=== PATIENT | male | born 1935 | race African-American/Black ===

== ENCOUNTER 2017-01-07 11:30 | Emergency (ER) | payer MEDICAID, MEDICARE ==
[2017-01-07] MEDS ORDERED: Sodium Chloride 0.9% 500 ML ONE (12:51)
[2017-01-07 15:13] LABS: #Lymphocytes 1.3 thou/uL (1.20-3.40); #Monocytes 0.5 thou/uL (0.11-0.59); #Neutrophils 17.1 thou/uL (1.40-6.50); %Basophils 0.2 % (0.0-1.0); %Lymphocytes 6.6 % (21.0-51.0); %Monocytes 2.8 % (0.0-10.0); Anisocytosis MODERATE=16-30 cells (100X) (0-5/hpf); Hematocrit 31.6 % (42.0-52.0); Hypochromia MODERATE=16-30 cells (100X) (0-5/hpf); Mean Platelet Volume 7.6 fL (7.4-10.4); Red Blood Cell (RBC) Count 3.49 mill/uL (4.70-6.10); White Blood Cell (WBC) Count 18.9 thou/uL (4.8-10.8)
[2017-01-07 15:28] LABS: Lactic Acid - Sepsis 1.4 mmol/L (0.5-2.2)
[2017-01-07 15:31] LABS: ALT (SGPT) 28 U/L (0-55); AST (SGOT) 22 U/L (5-34); Alkaline Phosphatase 186 U/L (40-150); Anion Gap 22 mmol/L (10-20); Bilirubin, Total 0.3 mg/dL (0.2-1.2); CK (CPK) 193 U/L (30-200); Calc. Creatinine Clearance 0 mL/min (70-130); Calcium 9.9 mg/dL (7.8-10.44); Carbon Dioxide 14 mmol/L (23-31); Estimated GFR-MDRD 15; Globulin 4.5 g/dL (2.4-3.5); Lipase 16 U/L (8-78); Troponin I 0.011 ng/mL (< 0.028)
[2017-01-07 15:35] LABS: Chloride 129 mmol/L (98-107)
[2017-01-07 15:37] LABS: BUN (Urea Nitrogen) 104 mg/dL (8.4-25.7)
--- NOTE | 2017-01-07 16:02 | CT ---
CT HEAD NONCONTRAST: Indication: Altered mental status for one week. History of prior stroke. FINDINGS: No prior imaging comparison. There is extensive patient motion throughout the exam which degrades image quality and limits assess ment. There is encephalomalacia involving the anterior division right MCA territory. No obvious in tracranial hemorrhage, mass effect, or midline shift. Moderate chronic microvascular ischemic disea se. There are scattered lacunar infarctions in the bilateral basal ganglia. Prominent paranasal si nus opacification including fluid levels present, most notably within the right maxillary sinus and right frontal ethmoidal sinus. IMPRESSION: 1. Limited exam by the degree of patient motion. 2. Chronic ischemic changes are present. No definite acute intracranial hemorrhage or mass effect within limitations. POS: [facility]
--- NOTE | 2017-01-07 16:04 | RAD ---
SINGLE VIEW OF THE CHEST: Indication: Altered mental status. Comparison: None. FINDINGS: There is scattered fibrotic change, most prominent in the right upper lobe. No acute airspace opac ity or pleural effusion is noted. Cardiomediastinal silhouette is within normal limits. No acute o sseous abnormality is apparent. IMPRESSION: No definite acute cardiopulmonary abnormalities. POS: [facility]
[2017-01-07] MEDS ORDERED: Calcium Chloride 1 GM/10 ML Abboject SYRINGE ONE (16:08)
[2017-01-07] MEDS ORDERED: Insulin Regular 300 UNITS/3 ML VIAL ONE (16:08)
[2017-01-07] MEDS ORDERED: Sodium Chloride 0.9% 1,000 ML ONE (16:08)
[2017-01-07] MEDS ORDERED: Dextrose 10% in Water 1,000 ML ONE (16:12)
[2017-01-07] MEDS ORDERED: Dextrose 50% Abboject 50 ML SYRINGE ONE ×2 (16:13→16:27)
[2017-01-07] MEDS ORDERED: Sodium Chloride 0.9% 100 ML ONE (16:42)
--- NOTE | 2017-01-07 16:55 | ERRECORD ---
[facility] EMERGENCY RECORD HPI MENTAL STATUS CHANGES (11:55 [facility]) CHIEF COMPLAINT: Patient presents for evaluation of Per EMS pt was [facility] from [facility] for decreased responsiveness x1 week. Used to make some incoherent noises but now no reaction. Pt now with mouth hanging open all the time. History of demetia and parkinsons. HISTORIAN: Additional history obtained from EMS. LOCATION: Unable to localize symptoms. QUALITY: Patient is, responsive to painful stimuli, [place] coma score, Eye opening: (4) - Spontaneous, Verbal: (1) - Absent, Motor: (4) - Withdraws to Pain, GCS Total: 9. TIME COURSE: Patient unable to describe onset of symptoms. ASSOCIATED WITH: unknown. EXACERBATED BY: Patient's condition exacerbated by unknown. RELIEVED BY: Patient's condition relieved by nothing. RISK FACTORS: CVA/TIA risk factors, Prior CVA / TIA. E/M CAVEAT: Emergency room caveat invoked due to patient with mental status changes. PAST MEDICAL HISTORY MEDICAL HISTORY: Notes: Parkinson's, dementia, frequent UTIs, stroke 2016. (11:56 [facility]) MALE SURGICAL HISTORY: Patient has no surgical history. (11:56 [facility]) PSYCHIATRIC HISTORY: Notes: dementia. (11:56 [facility]) NOTES: Nursing records reviewed, Agree with nursing records. (12:00 [facility]) KNOWN ALLERGIES NKDA CURRENT MEDICATIONS (17:14 [facility]) Unable to Obtain VITAL SIGNS VITAL SIGNS: BP: 144/64, Pulse: 105, Resp: 20, Temp: 98.6 (Oral), Pain: UTR, O2 sat: 100 on Room Air, Time: 01/07/2017 11:42. (11:42 [facility]) BP: 128/63, Pulse: 105, Resp: 19, Pain: UTR, O2 sat: 98 on 2L Oxygen, Time: 01/07/2017 14:50. (14:50 [facility]) BP: 120/70, Pulse: 102, Resp: 20, Pain: UTR, O2 sat: 100 on 2L Oxygen, Time: 01/07/2017 12:01. (12:01 [facility]) BP: 116/46, Pulse: 104, Resp: 18, Pain: UTR, O2 sat: 100 on 2L Oxygen, Time: 01/07/2017 13:02. (13:02 [facility]) BP: 139/93, Pulse: 101, Resp: 21, Temp: 96.9 (Rectal), Pain: UTR, O2 sat: 96 on 2L Oxygen, Time: 01/07/2017 16:00. (16:00 [facility]) BP: 106/55, Pulse: 101, Resp: 18, Pain: UTR, O2 sat: 95 on 2L Oxygen, Time: 01/07/2017 16:39. (16:39 [facility]) &a-1R&a+25V*p+0X*[id number]*c202B*c15G*c2P*p-0X&a-25V&a+1R Name: Carson Benitez : 09/14/1936 M80 MedRec: [id number] AcctNum: [id number] Prepared: SatJan 07, 2017 18:18 by Interface Page 1 of 3 pMD [facility] EMERGENCY RECORD PHYSICAL EXAM (11:58 [facility]) CONSTITUTIONAL: Vital Signs Reviewed, Pt laying in bed, slowly attempting to curl up. Pt resists efforts to straighten him out. Withdraws to pain only. No verbal responses. Mouth hangs open with tongue protruding. No apparent resp distress. HEAD: Head exam included findings of head atraumatic, normocephalic. EYES: Eye exam included findings of eyelids normal to inspection, Pupils not equally round and reactive to light, Left pupil pinpoint, Right pupil pinpoint. ENT: Mouth exam included findings of, mucous membranes dry, tongue protruding. NECK: Trachea midline, no jugular venous distention. RESPIRATORY CHEST: Respiratory exam included findings of no respiratory distress, Breath sounds clear, No wheezing, No rales, No rhonchi. CARDIOVASCULAR: Cardiovascular exam included findings of, rate tachycardic, Heart sounds normal. ABDOMEN MALE: Abdominal exam included findings of abdomen nontender, Bowel sounds normal, no distension. BACK: Back exam included findings of normal inspection. UPPER EXTREMITY: Upper extremity exam included findings of inspection normal, Radial pulse normal, no cyanosis, no clubbing, no edema. LOWER EXTREMITY: Lower extremity exam included findings of inspection normal, no edema. NEURO: Neuro exam findings include patient oriented to, Speech, absent. SKIN: I have completed a skin comprehensive exam and found exam normal, Skin warm, dry, and normal in color. MEDICATION ADMINISTRATION SUMMARY Drug Name: dextrose 10 % in water (D10W), Dose Ordered: 50 mL/hr, Route: IV Fluid Infusion, Status: Given, Time: 16:57 01/07/2017, Drug Name: NovoLIN R, Dose Ordered: 10 units, Route: IV Push, Status: Given, Time: 16:57 01/07/2017, Drug Name: *dextrose 50 % in water (D50W), Dose Ordered: 1 amp(s), Route: IV Push, Status: Given, Time: 16:56 01/07/2017, Drug Name: calcium chloride intravenous, Dose Ordered: 1000 mg, Route: IV Push, Status: Given, Time: 16:55 01/07/2017, Drug Name: *sodium chloride 0.9 % intravenous, Dose Ordered: 1 L, Route: IV Fluid Infusion, Status: Given, Time: 16:55 01/07/2017, Drug Name: *sodium chloride 0.9 % intravenous, Dose Ordered: 500 mL, Route: IV Fluid Infusion, Status: Given, Time: 12:57 01/07/2017, *Additional information available in notes, Detailed record available in Medication Service section. DOCTOR NOTES TEXT: Dr. Cooper accepted the transfer to [facility] ER. &a-1R&a+25V*p+0X*[id number]*c202B*c15G*c2P*p-0X&a-25V&a+1R Name: Carson Benitez : 09/14/1936 M80 MedRec: [id number] AcctNum: [id number] Prepared: SatJan 07, 2017 18:18 by Interface Page 2 of 3 pMD [facility] EMERGENCY RECORD (16:14 [facility]) Nurses attempted to place garces without success. Exam of penis reveals an unfused ventral penile shaft the tracks back beneath the foreskin for an unknown length. Physician attempted to threat the garces but met resistance just past the base and garces attempt stopped. (16:15 [facility]) PROBLEM LIST No recorded problems DIAGNOSIS (16:46 [facility]) FINAL: PRIMARY: Hyperkalemia, ADDITIONAL: ACUTE RENAL FAILURE TUBULR NECROSIS, DEHYDRATION. PRESCRIPTION No recorded prescriptions DISPOSITION PATIENT: Disposition Type: Transfer, Disposition: Transfer to [facility]. (16:46 [facility]) Patient left the department. (18:11 [facility]) Hernández: JLOY=MD Jaspreet, Ze [facility]=ADELITA Carcamo, Kandace &a-1R&a+25V*p+0X*[id number]*c202B*c15G*c2P*p-0X&a-25V&a+1R Name: Carson Benitez : 09/14/1936 M80 MedRec: [id number] AcctNum: [id number] Prepared: Lisbeth Jan 07, 2017 18:18 by Interface Page 3 of 3 pMD [facility]D
--- NOTE | 2017-01-07 16:56 | PICIS ---
[facility] EMERGENCY RECORD TRIAGE (SatJan 07, 2017 11:55 [facility]) TRIAGE NOTES: EMS reporting pt has been altered for a week per family. Pt has hx of strokes but is "more altered than usual.". (SatJan 07, 2017 11:55 [facility]) PATIENT: NAME: Carson Benitez, AGE: 80, GENDER: male, : Sun Sep 14, 1936, TIME OF GREET: SatJan 07, 2017 11:31, PREFERRED LANGUAGE: Micronesian, ETHNICITY: Not or , ECODE BILLING MAP: [facility] ER, SSN: [id number], Zip Code: [address], KG WEIGHT: 61.23 (est.), PHONE: , , , PERSON ID: [id number]. (SatJan 07, 2017 11:55 [facility]) COMPLAINT: AMS. (SatJan 07, 2017 11:55 [facility]) ADMISSION: URGENCY: 2 Emergent, ADMISSION SOURCE: Detention, TRANSPORT: AMBULANCE - [facility], BED: ER -04. (SatJan 07, 2017 11:55 [facility]) IMMUNIZATIONS: Flu vaccine up to date, Tetanus immunization up to date, Pneumococcal vaccine not up to date. (11:56 [facility]) SIRS SCORING: Heart Rate 55-109 (0), Temp range 96.8-101.1 (0), respiratory rate 12-24 (0), Mental Status altered: no (0). (11:56 [facility]) TRIAGE SCREENING: Patient denies suicidal ideation, Patient denies presence of domestic violence. (11:56 [facility]) PROVIDERS: TRIAGE NURSE: Kandace Carcamo RN. (SatJan 07, 2017 11:55 [facility]) VITAL SIGNS: BP 144/64, Pulse 105, Resp 20, Temp 98.6, (Oral), Pain UTR, O2 Sat 100, on Room Air, Time 01/07/2017 11:42. (11:42 [facility]) KNOWN ALLERGIES NKDA CURRENT MEDICATIONS (17:14 [facility]) Unable to Obtain VITAL SIGNS VITAL SIGNS: BP: 144/64, Pulse: 105, Resp: 20, Temp: 98.6 (Oral), Pain: UTR, O2 sat: 100 on Room Air, Time: 01/07/2017 11:42. (11:42 [facility]) BP: 128/63, Pulse: 105, Resp: 19, Pain: UTR, O2 sat: 98 on 2L Oxygen, Time: 01/07/2017 14:50. (14:50 [facility]) BP: 120/70, Pulse: 102, Resp: 20, Pain: UTR, O2 sat: 100 on 2L Oxygen, Time: 01/07/2017 12:01. (12:01 [facility]) BP: 116/46, Pulse: 104, Resp: 18, Pain: UTR, O2 sat: 100 on 2L Oxygen, Time: 01/07/2017 13:02. (13:02 [facility]) BP: 139/93, Pulse: 101, Resp: 21, Temp: 96.9 (Rectal), Pain: UTR, O2 sat: 96 on 2L Oxygen, Time: 01/07/2017 16:00. (16:00 [facility]) BP: 106/55, Pulse: 101, Resp: 18, Pain: UTR, O2 sat: 95 on 2L Oxygen, Time: 01/07/2017 16:39. (16:39 [facility]) NURSING ASSESSMENT: FALL RISK (16:03 [facility]) FALL RISK: Fall risk assessment findings include: History of &a-1R&a+25V*p+0X*n3036M*c202B*c15G*c2P*p-0X&a-25V&a+1R Name: Carson Benitez : 09/14/1936 M80 MedRec: [id number] AcctNum: [id number] Prepared: SatJan 07, 2017 18:18 by Interface Page [address] [facility] EMERGENCY RECORD falls (5), Bed rest greater than 2 days (5), Sensory deficits (1), Impaired mobility (3), Neurologic diagnosis (3), Elimination problems (3), Confusion (3), Total score 23. NURSING ASSESSMENT: NEURO (12:01 [facility]) GCS: (4) Withdraws to pain:, (2) Incomprehensible speech:, (2) Opening to response to pain:, Result: 8. CONSTITUTIONAL: Complex assessment performed, Patient arrives, via [facility], Unsteady gait, Inability to ambulate, History obtained from, family member: Amadeo Urias (niece), Patient appears, confused, Patient, uncooperative, unresponsive, Patient, responsive to painful stimuli, Patient is, disoriented, Skin abnormal, Skin temperature is cold, Skin dry, Skin normal in color, Niece reporting pt has been altered for some period of time, but was @ his baseline on Saturday when she visited him. Is now A&Ox0, responsive only to painful stimuli, and attempting to chew on his hands and leads. Brief from skilled nursing noted to be saturated with blood. PAIN: UTR. NEURO: Pupils equally round and reactive to light, Able to close eyes, Face asymmetrical, right greater than left, Speech, not verbally responsive. SAFETY: Side rails up, Cart/Stretcher in lowest position, Family at bedside, Call light within reach, Hospital ID band on. VITAL SIGNS: BP: 120, / 70, Pulse: 102, Resp: 20, Pain: UTR, O2 sat: 100, on: RA. NURSING ASSESSMENT: SKIN (16:03 [facility]) SKIN: Skin assessment findings include skin warm, Skin dry, Skin normal in color, Inspection findings include: No pressure ulcer to the shoulder, Inspection findings include no pressure ulcer to the elbow, Inspection findings include no pressure ulcers to the hip, Inspection findings include pressure ulcer to the sacrum, Stage I, length (cm) 3, width (cm) 3, draining serosanguinous fluid, Pt has what appears to be a small fissure or hemorrhoids around rectum; anal opening noted to be diameter of a nickel., Inspection findings include no pressure ulcer to the heel, Inspection findings include no pressure ulcer, Inspection findings include no pressure ulcer, Notes: Pt's skin is CDI with no deformities or lesions noted to posterior surface, other than as listed around perineal area. Central line placed in R femoral vein. JOSE ANGEL SCALE: (2) Sensory perception very limited, (2) Skin is very moist, (1) Patient is bedfast, (1) Completely immobile, (1) Very poor nutrition, (1) Patient has problem moving, Jose Angel Risk Total: 8. SAFETY: Side rails up, Cart/Stretcher in lowest position, Call &a-1R&a+25V*p+0X*o6219M*c202B*c15G*c2P*p-0X&a-25V&a+1R Name: Carson Benitez : 09/14/1936 M80 MedRec: [id number] AcctNum: [id number] Prepared: SatJan 07, 2017 18:18 by Interface Page [address] [facility] EMERGENCY RECORD light within reach, Hospital ID band on. NURSING PROCEDURE: BEDSIDE SIRS TESTING (15:35 [facility]) SCORES: Heart Rate 55-109 (0), Temp range 96.8-101.1 (0), respiratory rate 12-24 (0), Latest WBC 15-19.9 (1), Mental status altered: yes (1), Total SIRS Score 2, Yes, Infection or Suspected Infection. NURSING PROCEDURE: BEDSIDE TESTING (17:41 [facility]) GLUCOSE: Glucose testing indicated for mental status changes, Venous blood sample, Result (mg/dl) 128. NURSING PROCEDURE: CAMPAIGN COORDINATOR (14:15 [facility]) CAMPAIGN COORDINATOR: Patient placed on personnel monitor, Patient placed on non-invasive blood pressure monitor, Patient placed on continuous pulse oximetry. FOLLOW-UP: After procedure, alarms set and on, After procedure, patient tolerating monitoring. SAFETY: Side rails up, Cart/Stretcher in lowest position, Call light within reach, Hospital ID band on. NURSING PROCEDURE: CENTRAL LINE (14:50 [facility]) TIMEOUT: Prior to procedure, correct patient verified by, Correct procedure verified, Correct site verified, Correct equipment utilized. CENTRAL LINE SITE 1: Central line indicated for inability to establish peripheral IV, Central line indicated for penitentiary need for fluids or antibiotics, Central line insertion for patient greater than or 5 years of age. FOLLOW-UP SITE 1: After procedure, sterile dressing applied, After procedure, tubing connections checked and properly labeled, After procedure, central line flushes easily and patent, After procedure, no drainage at site, After procedure, no swelling at site. SAFETY: Side rails up, Cart/Stretcher in lowest position, Call light within reach, Hospital ID band on. NURSING PROCEDURE: EKG CHART (12:22 [facility]) FOLLOW-UP: After procedure, EKG for interpretation given to Dr. Mitchell. SAFETY: Side rails up, Cart/Stretcher in lowest position, Call light within reach, Hospital ID band on. NURSING PROCEDURE: IV IV SITE 1: IV established, to the right hand, using a 22 gauge catheter, in two attempts, IV site prepped with chloraprep, Saline lock established, Flushed with normal saline (mls): 10, Notes: KRUNAL established by ADELITA Acosta with use of IV catheter and start kit. SL established with no swelling, drainage, or redness. Secured with clear Tegaderm. (12:52 [facility]) FOLLOW-UP SITE 1: After procedure, no drainage at IV site, After &a-1R&a+25V*p+0X*e3474O*c202B*c15G*c2P*p-0X&a-25V&a+1R Name: Carson Benitez : 09/14/1936 M80 MedRec: [id number] AcctNum: [id number] Prepared: SatJan 07, 2017 18:18 by Interface Page [address] [facility] EMERGENCY RECORD procedure, no swelling at IV site, After procedure, no redness at IV site, IV discontinued, by patient, catheter intact. (14:52 [facility]) NURSING PROCEDURE: NURSE NOTES (11:56 [facility]) NURSES NOTES: Notes: Brief from skilled nursing noted to be full of blood. EMS did not call prior to delivery of pt- stated they "did not have the facility's phone number." Pt disoriented and nonverbal, squirming slowly and niece @ BS says he was "appropriate and like normal on Saturday." SEGREGATOR from [facility] called for report after pt's arrival. NURSING PROCEDURE: OXYGEN THERAPY (11:55 [facility]) OXYGEN THERAPY: Oxygen therapy indicated for desaturation. SAFETY: Side rails up, Cart/Stretcher in lowest position, Call light within reach, Hospital ID band on. NURSING PROCEDURE: TRANSFER (18:06 [facility]) TRANSFER: Reason for transfer need for specialized care, Diagnosis: Hyperkalemia, acute renal failure, tubular necrosis, dehydration, Accepting institution: [place] [facility], Accepting physician: Pricilla, Referring physician: Jaspreet, Transported by non-urgent ambulance, accompanied by emergency medical services personnel, Report called to receiving facility, Summary of Care printed, Copy of patient record prepared for receiving facility, Family member contacted. BELONGINGS: Belongings and valuables with patient upon arrival to the Emergency Department include:, Belongings and valuables with patient at time of discharge include:. SAFETY: Side rails up, Cart/Stretcher in lowest position, Family at bedside, Call light within reach, Hospital ID band on. NURSING PROCEDURE: TRANSPORT TO TESTS TRANSPORT TO TESTS: Transport indicated to facilitate diagnosis, Patient transported to x-ray, via cart, Accompanied by x-ray radiochemical technician, Transported with advanced life support care. (12:09 [facility]) Patient transported to CT scan, via cart, Patient arrived in location at 1215, Patient departed location at 1220, Notes: pt taken to CT, but pt became agitated. Unable to perform CT at this time. Pt returned to ER and nurses informed. (12:15 [facility]) FOLLOW-UP: After procedure, patient returned to emergency department. (12:15 [facility]) SAFETY: Side rails up, Cart/Stretcher in lowest position, Family at bedside, Call light within reach, Hospital ID band on. (12:09 [facility]) ORDER DETAILS Order Name: Cardiac Profile w/CKMB & Troponin - I, Status: Active, Time: 12:01 01/07/2017, User: ERIK, &a-1R&a+25V*p+0X*k9410Y*c202B*c15G*c2P*p-0X&a-25V&a+1R Name: Carson Benitez : 09/14/1936 M80 MedRec: [id number] AcctNum: [id number] Prepared: SatJan 07, 2017 18:18 by Interface Page [address] [facility] EMERGENCY RECORD - Ordered for: MD Mitchell Joshua, - Entered by: MD Mitchell Joshua - [facility] Jan 07, 2017 12:01, - Quantity: 1, Order Name: CATH STRAIGHT ED, Status: Canceled, Time: 15:26 01/07/2017, User: [facility], - Ordered for: MD Mitchell Joshua, - Entered by: MD Mitchell Joshua - [facility] Jan 07, 2017 12:01, - Reason for Cancel: unable to obtain, - Quantity: 1, Order Name: CBC with Differential, Status: Active, Time: 12:01 01/07/2017, User: ERIK, - Ordered for: MD Mitchell Joshua, - Entered by: MD Mitchell Joshua - [facility] Jan 07, 2017 12:01, - Quantity: 1, Order Name: chart element #1, Status: Active, Time: 14:50 01/07/2017, User: System, - Ordered for: MD Mitchell Joshua, - Entered by: ADELITA Carcamo, [facility] Jan 07, 2017 14:50, - Quantity: 1, Order Name: chart element #4, Status: Active, Time: 14:50 01/07/2017, User: System, - Ordered for: MD Mitchell Joshua, - Entered by: ADELITA Carcamo, [facility] Jan 07, 2017 14:50, - Quantity: 1, Order Name: CK (CPK), Status: Active, Time: 12:01 01/07/2017, User: ERIK, - Ordered for: MD Mitchell Joshua, - Entered by: MD Mitchell Joshua - [facility] Jan 07, 2017 12:01, - Quantity: 1, Order Name: Comprehensive Metabolic Panel, Status: Active, Time: 12:01 01/07/2017, User: ERIK, - Ordered for: MD Mitchell Joshua, - Entered by: MD Mitchell Joshua - [facility] Jan 07, 2017 12:01, - Quantity: 1, Order Name: CT Brain WO Con, Status: Active, Time: 12:01 01/07/2017, User: ERIK, - Ordered for: MD Mitchell Joshua, - Entered by: MD Mitchell Joshua - [facility] Jan 07, 2017 12:01, - Quantity: 1, Order Name: Culture, Blood, Status: Active, Time: 14:53 01/07/2017, User: ERIK, - Ordered for: MD Mitchell Joshua, - Entered by: MD Mitchell Joshua - Mon Jan 07, 2017 14:53, - Quantity: 1, Order Name: EKG 12 Lead in Emergency Room, Status: Active, Time: 12:01 01/07/2017, User: ERIK, - Ordered for: MD Mitchell Joshua, - Entered by: MD Mitchell Joshua - [facility] Jan 07, 2017 12:01, - Quantity: 1, Order Name: ERRT Oxygen Usage ER, Status: Active, Time: 14:51 &a-1R&a+25V*p+0X*r5739U*c202B*c15G*c2P*p-0X&a-25V&a+1R Name: Carson Benitez : 09/14/1936 M80 MedRec: [id number] AcctNum: [id number] Prepared: SatJan 07, 2017 18:18 by Interface Page [address] [facility] EMERGENCY RECORD 01/07/2017, User: CURTIS, - Ordered for: MD Mitchell Joshua, - Entered by: ADELITA Carcamo, Kandace - [facility] Jan 07, 2017 14:51, - Quantity: 1, Order Name: Lactic Acid with repeat, Status: Active, Time: 14:53 01/07/2017, User: ERIK, - Ordered for: MD Mitchell Joshua, - Entered by: MD Mitchell Joshua - [facility] Jan 07, 2017 14:53, - Quantity: 1, Order Name: Lipase, Status: Active, Time: 12:01 01/07/2017, User: ERIK, - Ordered for: MD Mitchell Joshua, - Entered by: MD Mitchell Joshua - [facility] Jan 07, 2017 12:01, - Quantity: 1, Order Name: SALINE LOCK, Status: Done, Time: 12:52 01/07/2017, User: CURTIS, - Ordered for: MD Mitchell Joshua, - Entered by: MD Mitchell Joshua - [facility] Jan 07, 2017 12:01, - Quantity: 1, Order Name: Urinalysis w/ Rflx Microscopic, Status: Canceled, Time: 15:27 01/07/2017, User: CURTIS, - Ordered for: MD Mitchell Joshua, - Entered by: MD Mitchell Joshua - [facility] Jan 07, 2017 12:01, - Quantity: 1, Order Name: XR Chest 1 View Portable, Status: Active, Time: 12:01 01/07/2017, User: ERIK, - Ordered for: MD Mitchell Joshua, - Entered by: MD Mitchell Joshua - SatJan 07, 2017 12:01, - Quantity: 1. MEDICATION ADMINISTRATION SUMMARY Drug Name: dextrose 10 % in water (D10W), Dose Ordered: 50 mL/hr, Route: IV Fluid Infusion, Status: Given, Time: 16:57 01/07/2017, Drug Name: NovoLIN R, Dose Ordered: 10 units, Route: IV Push, Status: Given, Time: 16:57 01/07/2017, Drug Name: *dextrose 50 % in water (D50W), Dose Ordered: 1 amp(s), Route: IV Push, Status: Given, Time: 16:56 01/07/2017, Drug Name: calcium chloride intravenous, Dose Ordered: 1000 mg, Route: IV Push, Status: Given, Time: 16:55 01/07/2017, Drug Name: *sodium chloride 0.9 % intravenous, Dose Ordered: 1 L, Route: IV Fluid Infusion, Status: Given, Time: 16:55 01/07/2017, Drug Name: *sodium chloride 0.9 % intravenous, Dose Ordered: 500 mL, Route: IV Fluid Infusion, Status: Given, Time: 12:57 01/07/2017, *Additional information available in notes, Detailed record available in Medication Service section. MEDICATION SERVICE calcium chloride intravenous: Order: calcium chloride intravenous (calcium chloride) - Dose: 1000 mg : IV Push Ordered by: Ze Mitchell MD &a-1R&a+25V*p+0X*h7102A*c202B*c15G*c2P*p-0X&a-25V&a+1R Name: Carson Benitez : 09/14/1936 M80 MedRec: [id number] AcctNum: [id number] Prepared: SatJan 07, 2017 18:18 by Interface Page [address] [facility] EMERGENCY RECORD Entered by: Ze Mitchell MD SatJan 07, 2017 15:49 , Acknowledged by: Kandace Carcamo RN SatJan 07, 2017 16:02 Documented as given by: Kandace Carcamo RN SatJan 07, 2017 16:55 Patient, Medication, Dose, Route and Time verified prior to administration. Amount given: 1g, Added to 100 ml NS fluid infusion per ERMD. : Follow Up : Response assessment performed, No signs or symptoms of allergic reaction noted, Site inspection shows, No swelling at administration site, No drainage at administration site, No bleeding at site, No bruising noted at site, _IV SITE #1:_, Medication infusion discontinued, on SatJan 07, 2017 17:46, 55 minutes, ., Total amount infused: 1g. (17:46 [facility]) dextrose 10 % in water (D10W): Order: dextrose 10 % in water (D10W) (dextrose 10 % in water) - Dose: 50 mL/hr : IV Fluid Infusion Ordered by: Ze Mitchell MD Entered by: Ze Mithcell MD SatJan 07, 2017 16:19 , Acknowledged by: Kandace Carcamo RN SatJan 07, 2017 16:26 Documented as given by: Kandace Carcamo RN SatJan 07, 2017 16:57 Patient, Medication, Dose, Route and Time verified prior to administration. Amount given: 50 mL/hr. : Follow Up : Response assessment performed, No signs or symptoms of allergic reaction noted, Site inspection shows, No swelling at administration site, No drainage at administration site, No bleeding at site, No bruising noted at site, _IV SITE #1:_, IV fluid infusion continued upon transfer from emergency department, on SatJan 07, 2017 17:46, 50 minutes, ., Total amount infused: 44 ml. (17:46 [facility]) dextrose 50 % in water (D50W): Order: dextrose 50 % in water (D50W) (dextrose 50 % in water) - Dose: 1 amp(s) : IV Push Notes: Give prior to insulin Ordered by: Ze Mitchell MD Entered by: Ze Mitchell MD SatJan 07, 2017 16:19 , Acknowledged by: Kandace Carcamo RN SatJan 07, 2017 16:26 Documented as given by: Kandace Carcamo RN SatJan 07, 2017 16:56 Patient, Medication, Dose, Route and Time verified prior to administration. Amount given: 1 amp, IV SITE #1 IVP, subsequent different medication, Administered by ADELITA Jeronimo, Patient in position of comfort, Side rails up, Cart in lowest position, Call light in reach. NovoLIN R: Order: NovoLIN R (insulin regular, human) - Dose: 10 units : IV Push Ordered by: Ze Mitchell MD Entered by: Ze Mitchell MD SatJan 07, 2017 16:19 , Acknowledged by: Kandace Carcamo RN SatJan 07, 2017 16:26 Documented as given by: Kandace Carcamo RN SatJan 07, 2017 16:57 Patient, Medication, Dose, Route and Time verified prior to administration. Amount given: 10 units, IV SITE #1 IVP, Administered by ADELITA Jeronimo, &a-1R&a+25V*p+0X*b5566D*c202B*c15G*c2P*p-0X&a-25V&a+1R Name: Carson Benitez : 09/14/1936 M80 MedRec: [id number] AcctNum: [id number] Prepared: SatJan 07, 2017 18:18 by Interface Page [address] [facility] EMERGENCY RECORD Patient in position of comfort, Side rails up, Cart in lowest position, Call light in reach. sodium chloride 0.9 % intravenous: Order: sodium chloride 0.9 % intravenous (0.9 % sodium chloride) - Dose: 500 mL : IV Fluid Infusion Notes: (Bolus) Ordered by: Ze Mitchell MD Entered by: Ze Mitchell MD SatJan 07, 2017 12:01 , Acknowledged by: Kandace Carcamo RN SatJan 07, 2017 12:04 Documented as given by: Kandace Carcamo RN SatJan 07, 2017 12:57 Patient, Medication, Dose, Route and Time verified prior to administration. Amount given: 500 ml, IV SITE #1 IV fluids established for hydration, IV SITE #1 into right hand, IV SITE #1 1st bag hung, amount 500ml hung, IV SITE #1 Rate of infusion (non-bolus) Infusing at 500 ml/hr, via primary tubing, IV SITE #1 on IV pump, Administered by ADELITA Jeronimo, Patient in position of comfort, Side rails up, Cart in lowest position, Call light in reach. : Follow Up : _IV SITE #1:_, IV fluid infusion discontinued, on SatJan 07, 2017 15:34, Total fluid hydration time IV site 1 2 hours, 40 minutes, ., fluid stopped ~ 20 minutes after administration due to blown IV. Restarted 500 mL NS bolus in central line @ 1535. (15:34 [facility]) sodium chloride 0.9 % intravenous: Order: sodium chloride 0.9 % intravenous (0.9 % sodium chloride) - Dose: 1 L : IV Fluid Infusion Notes: (Bolus) Ordered by: Ze Mitchell MD Entered by: Ze Mitchell MD SatJan 07, 2017 15:39 , Acknowledged by: Kandace Carcamo RN SatJan 07, 2017 16:02 Documented as given by: Kandace Carcamo RN SatJan 07, 2017 16:55 Patient, Medication, Dose, Route and Time verified prior to administration. Amount given: 1L. : Follow Up : Response assessment performed, No signs or symptoms of allergic reaction noted, Site inspection shows, No swelling at administration site, No drainage at administration site, No bleeding at site, No bruising noted at site, _IV SITE #1:_, IV fluid infusion discontinued, on SatJan 07, 2017 17:46, 55 minutes, ., Total amount infused: 1L. (17:46 [facility]) HPI MENTAL STATUS CHANGES (11:55 [facility]) CHIEF COMPLAINT: Patient presents for evaluation of Per EMS pt was sent from the skilled nursing for decreased responsiveness x1 week. Used to make some incoherent noises but now no reaction. Pt now with mouth hanging open all the time. History of demetia and parkinsons. HISTORIAN: Additional history obtained from EMS. LOCATION: Unable to localize symptoms. QUALITY: Patient is, responsive to painful stimuli, Parlin coma &a-1R&a+25V*p+0X*s3645P*c202B*c15G*c2P*p-0X&a-25V&a+1R Name: Carson Benitez : 09/14/1936 M80 MedRec: [id number] AcctNum: [id number] Prepared: SatJan 07, 2017 18:18 by Interface Page [address] [facility] EMERGENCY RECORD score, Eye opening: (4) - Spontaneous, Verbal: (1) - Absent, Motor: (4) - Withdraws to Pain, GCS Total: 9. TIME COURSE: Patient unable to describe onset of symptoms. ASSOCIATED WITH: unknown. EXACERBATED BY: Patient's condition exacerbated by unknown. RELIEVED BY: Patient's condition relieved by nothing. RISK FACTORS: CVA/TIA risk factors, Prior CVA / TIA. E/M CAVEAT: Emergency room caveat invoked due to patient with mental status changes. PAST MEDICAL HISTORY MEDICAL HISTORY: Notes: Parkinson's, dementia, frequent UTIs, stroke 2016. (11:56 [facility]) MALE SURGICAL HISTORY: Patient has no surgical history. (11:56 [facility]) PSYCHIATRIC HISTORY: Notes: dementia. (11:56 [facility]) NOTES: Nursing records reviewed, Agree with nursing records. (12:00 [facility]) PHYSICAL EXAM (11:58 [facility]) CONSTITUTIONAL: Vital Signs Reviewed, Pt laying in bed, slowly attempting to curl up. Pt resists efforts to straighten him out. Withdraws to pain only. No verbal responses. Mouth hangs open with tongue protruding. No apparent resp distress. HEAD: Head exam included findings of head atraumatic, normocephalic. EYES: Eye exam included findings of eyelids normal to inspection, Pupils not equally round and reactive to light, Left pupil pinpoint, Right pupil pinpoint. ENT: Mouth exam included findings of, mucous membranes dry, tongue protruding. NECK: Trachea midline, no jugular venous distention. RESPIRATORY CHEST: Respiratory exam included findings of no respiratory distress, Breath sounds clear, No wheezing, No rales, No rhonchi. CARDIOVASCULAR: Cardiovascular exam included findings of, rate tachycardic, Heart sounds normal. ABDOMEN MALE: Abdominal exam included findings of abdomen nontender, Bowel sounds normal, no distension. BACK: Back exam included findings of normal inspection. UPPER EXTREMITY: Upper extremity exam included findings of inspection normal, Radial pulse normal, no cyanosis, no clubbing, no edema. LOWER EXTREMITY: Lower extremity exam included findings of inspection normal, no edema. NEURO: Neuro exam findings include patient oriented to, Speech, absent. SKIN: I have completed a skin comprehensive exam and found exam normal, Skin warm, dry, and normal in color. &a-1R&a+25V*p+0X*[id number]*c202B*c15G*c2P*p-0X&a-25V&a+1R Name: Carson Benitez : 09/14/1936 M80 MedRec: [id number] AcctNum: [id number] Prepared: SatJan 07, 2017 18:18 by Interface Page [address] [facility] EMERGENCY RECORD EVENTS TRANSFER: Triage to Emergency Emergency Room -04. (SatJan 07, 2017 11:55 [facility]) Removed from Emergency Emergency Room -04. (18:11 [facility]) DOCTOR NOTES TEXT: Dr. Cooper accepted the transfer to [facility] ER. (16:14 JLOY) Nurses attempted to place garces without success. Exam of penis reveals an unfused ventral penile shaft the tracks back beneath the foreskin for an unknown length. Physician attempted to threat the garces but met resistance just past the base and garces attempt stopped. (16:15 JLOY) CENTRAL LINE (14:52 JLOY) TIMEOUT: Side and/or site verified, Patient identification confirmed, Sterile procedures observed. CENTRAL LINE: Verbal consent obtained, Central line indicated for inability to establish peripheral IV, There are no contraindications, Central line insertion for patient greater than or 5 years of age, Percutaneous, Central line inserted in right femoral, using a triple lumen catheter, Anesthesia used lidocaine 1% without epinephrine, 3 mLs, Seldinger technique used, After procedure, line secured, with sutures, After procedure, sterile dressing applied, After procedure, no bleeding from site, After procedure, no redness at site, After procedure, no swelling at site, After procedure, no ecchymosis at site, Chest x-ray not applicable, There were no complications, Patient tolerated the procedure well. PROBLEM LIST No recorded problems DIAGNOSIS (16:46 JLOY) FINAL: PRIMARY: Hyperkalemia, ADDITIONAL: ACUTE RENAL FAILURE TUBULR NECROSIS, DEHYDRATION. DISPOSITION PATIENT: Disposition Type: Transfer, Disposition: Transfer to [facility]. (16:46 JLOY) Patient left the department. (18:11 [facility]) PRESCRIPTION No recorded prescriptions IMAGING *MEMORANDUM OF TRANSFER: Image captured from scanner. (16:54 REZE) CONSENTS: Image captured from scanner. (16:54 REZE) *EKG: Image captured from scanner. (16:55 REZE) &a-1R&a+25V*p+0X*o0673X*c202B*c15G*c2P*p-0X&a-25V&a+1R Name: Carson Benitez : 09/14/1936 M80 MedRec: [id number] AcctNum: [id number] Prepared: SatJan 07, 2017 18:18 by Interface Page [address] [facility] EMERGENCY [facility] NOTES: Image captured from scanner. (17:37 REZE) Image captured from scanner. (17:37 REZE) Image captured from scanner. (17:37 REZE) Image captured from scanner. (17:38 REZE) Image captured from scanner. (17:38 REZE) Image captured from scanner. (17:38 REZE) Image captured from scanner. (17:38 REZE) Image captured from scanner. (17:38 REZE) Image captured from scanner. (17:39 REZE) Image captured from scanner. (17:39 REZE) Image captured from scanner. (17:39 REZE) Image captured from scanner. (17:39 REZE) *SUPPLY CHARGE SHEET: Image captured from scanner. (18:07 REZE) ADMIN (16:47 [facility]) DIGITAL SIGNATURE: MD Jaspreet, Ze. RESULTS (15:54 [facility]) LABORATORY: Lipase Collection DT: SatJan 07, 2017 14:58, Lipase 16 U/L, Range (8-78). CK (CPK) Collection DT: SatJan 07, 2017 14:58, CK (CPK) 193 U/L, Range (30-200). Comprehensive Metabolic Panel Collection DT: SatJan 07, 2017 14:58, Critical Call Chemistry CALLED W/READ BACK , Refer to Critical Value designated by an *L or *H , *Sodium 158 - H mmol/L, Range (136-145), *Potassium 7.0 - *H mmol/L, Range (3.5-5.1), NOTIFIED DR MITCHELL, [id number], *Chloride 129 - *H mmol/L, Range (98-107), [id number], *Carbon Dioxide 14 - L mmol/L, Range (23-31), *Anion Gap 22 - H mmol/L, Range (10-20), *BUN (Urea Nitrogen) 104 - H mg/dL, Range (8.4-25.7), *Creatinine 4.68 - H mg/dL, Range (0.7-1.3), Estimated GFR-MDRD 15 , Reference Range for Estimated GFR: Greater than 90, mL/min/1.73 m2 NOTE: The MDRD equation has not been validated for use, with the elderly (over 70 years of age), women, patients with, serious comorbid condition or persons with extremes of body size, muscle, mass, or nutritional status. , Glucose 107 mg/dL, Range (83-110), Calcium 9.9 mg/dL, Range (7.8-10.44), Bilirubin, Total 0.3 mg/dL, Range (0.2-1.2), Protein, Total 8.0 g/dL, Range (5.8-8.1), NOTE: Plasma values are generally 0.3 to 0.5 g/dL higher than serum values, due to the presence of fibrinogen. , Albumin 3.5 g/dL, Range (3.4-4.8), *Globulin 4.5 - H g/dL, Range (2.4-3.5), *Alb/Glob Ratio 0.8 - L g/dL, Range (1.2-2.2), &a-1R&a+25V*p+0X*q2084Q*c202B*c15G*c2P*p-0X&a-25V&a+1R Name: Carson Benitez : 09/14/1936 M80 MedRec: [id number] AcctNum: [id number] Prepared: SatJan 07, 2017 18:18 by Interface Page [address] [facility] EMERGENCY RECORD *Alkaline Phosphatase 186 - H U/L, Range (40-150), AST (SGOT) 22 U/L, Range (5-34), ALT (SGPT) 28 U/L, Range (0-55). Cardiac Profile w/CKMB & TropI Collection DT: SatJan 07, 2017 14:58, CKMB 5.5 ng/mL, Range (0-6.6), Troponin I 0.011 ng/mL, Range (< 0.028), Reference Range , 0.00 - 0.028 ng/mL Negative 0.029 - 0.29 ng/mL , Indeterminate Greater or Equal to 0.3 ng/mL Strongly suggests [place] , . Lactic Acid for Sepsis Collection DT: SatJan 07, 2017 14:58, Lactic Acid - Sepsis 1.4 mmol/L, Range (0.5-2.2). CBC with Differential Collection DT: SatJan 07, 2017 14:58, *White Blood Cell (WBC) Count 18.9 - H thou/uL, Range (4.8-10.8), *Red Blood Cell (RBC) Count 3.49 - L mill/uL, Range (4.70-6.10), *Hemoglobin 9.1 - L g/dL, Range (14.0-18.0), *Hematocrit 31.6 - L %, Range (42.0-52.0), Mean Corpuscular Volume 90.5 fl, Range (80.0-94.0), *Mean Corpuscular Hemoglobin 26.0 - L pg, Range (27.0-31.0), *Mean Corpuscular HGB CONC 28.7 - L g/dL, Range (32.0-36.0), *RBC Distribution Width 21.1 - H %, Range (11.5-14.5), Platelet Count 185 thou/uL, Range (130-400), Mean Platelet Volume 7.6 fL, Range (7.4-10.4), *%Neutrophils 90.4 - H %, Range (42.0-75.0), *%Lymphocytes 6.6 - L %, Range (21.0-51.0), %Monocytes 2.8 %, Range (0.0-10.0), %Eosinophils 0.0 %, Range (0.0-10.0), %Basophils 0.2 %, Range (0.0-1.0), *#Neutrophils 17.1 - H thou/uL, Range (1.40-6.50), #Lymphocytes 1.3 thou/uL, Range (1.20-3.40), #Monocytes 0.5 thou/uL, Range (0.11-0.59), #Eosinphils 0.0 thou/uL, Range (0.0-0.7), #Basophils 0.0 thou/uL, Range (0.0-0.2), Differential Comment SCANNED , Anisocytosis MODERATE=16-30 cells (100X), Range (0-5/hpf), Hypochromia MODERATE=16-30 cells (100X), Range (0-5/hpf). Hernández: ERIK=MD Jaspreet, Ze GARCIA=RACHNA Rivera Nikki REZE=ADELITA Delgado, Karla [facility]=ADELITA Carcamo, Kandace &a-1R&a+25V*p+0X*f1172R*c202B*c15G*c2P*p-0X&a-25V&a+1R Name: Carson Benitez : 09/14/1936 M80 MedRec: [id number] AcctNum: [id number] Prepared: SatJan 07, 2017 18:18 by Interface Page 12 of 12 pMD MTDD
== END 2017-01-07 18:06 | disposition short-term general hospital (02) ==
LOC: NAV ERS 11:30 → EDBD 11:30 → NAV ERS 18:06
DX: N17.0 Acute kidney failure with tubular necrosis (principal); E86.0 Dehydration; E87.6 Hypokalemia; G20 Parkinson's disease; F02.80 Dementia in other diseases classified elsewhere, unspecified severity, without behavioral disturbance, psychotic disturbance, mood disturbance, and anxiety; Z86.73 Personal history of transient ischemic attack (TIA), and cerebral infarction without residual deficits
CPT/HCPCS: 36416; 36556; 70450; 71010; 80053; 82550; 82553; 83605; 83690; 84484; 85025; 87040; 87077; 87149; 87186; 93005; 96361; 96365; 96375; J1815; J7050